=== PATIENT | female | born 1960 | race Caucasian/White ===

== ENCOUNTER 2022-03-17 10:02 | Outpatient (RCR) | payer BC | END 2022-04-01 | disposition still patient (30) | LOC: OT | DX: G90.512 Complex regional pain syndrome I of left upper limb (principal) ==

== ENCOUNTER 2022-04-10 15:30 | Outpatient (RCR) | payer BC | END 2022-05-01 | disposition still patient (30) | LOC: OT | DX: G90.512 Complex regional pain syndrome I of left upper limb (principal) ==

== ENCOUNTER 2022-05-02 09:58 | Outpatient (RCR) | payer BC | END 2022-05-23 10:06 | disposition home or self-care (01) | LOC: OT 09:58 | DX: G90.512 Complex regional pain syndrome I of left upper limb (principal) ==

== ENCOUNTER 2022-12-31 08:01 | Outpatient (RCR) | payer BC ==
[~2022-12-31 08:01] MED LIST: DILTIAZEM 24HR120 M2 PO; FLUCONAZOLE150 MG PO; MELOXICAM15 MG PO
== END 2023-01-30 | disposition home or self-care (01) ==
LOC: PT
DX: M76.62 Achilles tendinitis, left leg (principal); M76.61 Achilles tendinitis, right leg